=== PATIENT | female | born 1960 | race Caucasian/White ===

== ENCOUNTER → 2016-10-01 | Day surgery (SDC) | payer OTHER ==
[~2016-10-01] MED LIST: AMLO10 PO; GABA300 PO; GLUCTAB OR; INDO50CA PO; K-TA10TA5 PO; LACTATED RINGER'S 1000 ML INJ 1,000 ML ONE; LASI20TA PO; ONDA1TAB16 PO; PROPOFOL 500 MG/50 ML BTL IV ONE; PROT40TA PO; STOOL SOFTENER; TOPR50TA PO; TRAM50 PO
== END | disposition home or self-care (01) ==
LOC: ESDC 08:41
PROVIDERS: ATTEND Internal Medicine Gastroenterology
DX: K29.70 Gastritis, unspecified, without bleeding (principal); K22.70 Barrett's esophagus without dysplasia; K31.89 Other diseases of stomach and duodenum
CPT/HCPCS: 00740; 00810; 43239; 45380; 88305; 88312; J3010; J7120

== ENCOUNTER → 2016-11-22 | Outpatient (CLI) | payer OTHER ==
[~2016-11-22] MED LIST changes: -LACTATED RINGER'S 1000 ML INJ 1,000 ML ONE; -PROPOFOL 500 MG/50 ML BTL IV ONE
--- NOTE | 2016-11-22 14:50 | RADRPT ---
EXAM DATE/TIME: 11/22/2016 00:00 [place] COMPARISON: No previous studies available for comparison. INDICATIONS : Dysphagia. FLUORO TIME: 1.0 minutes IMAGE COUNT: 0 CONTRAST: Dose as prescribed by speech pathologist. MEDICAL HISTORY : Hypertension. Cardiovascular disease. Gastroesophageal reflux disease. Diabetes. SURGICAL HISTORY : Cholecystectomy. Hiatal hernia repair. ENCOUNTER: Initial ACUITY: 1 day PAIN SCORE: 0/10 LOCATION: Esophagus. FINDINGS: A modified barium swallow was performed with speech pathology. Patient was given a variety of liquids to swallow. Deglutition is grossly normal with no evidence of aspiration. For a full detailed report, see report by the speech pathologist. CONCLUSION: Unremarkable exam. Darian Fletcher MD on November 22, 2016 at 14:47 Board Certified Radiologist. This report was verified electronically.
== END ==
LOC: HRAD 13:39
DX: R13.10 Dysphagia, unspecified (principal)
CPT/HCPCS: 74230; 92611; G8996; G8997; G8998

== ENCOUNTER 2017-07-04 07:53 | Observation (INO) | payer OTHER ==
[~2017-07-04] VITALS: Ht 165.1 cm; Wt 154.9 kg
[2017-07-04] MEDS ORDERED: SODIUM CHLORID 0.9% 500 ML IV PRN (08:45)
[2017-07-04] MEDS ORDERED: ACETAMINOPHEN 1000 MG/100 ML 100 ML IV SCH (08:45)
[2017-07-04] MEDS ORDERED: INSULIN HUMAN REGULAR 1,000 UNITS/10 ML VIAL SQ PRN (08:45)
[2017-07-04] MEDS ORDERED: LACTATED RINGER'S 1000 ML IV PRN (08:45)
[2017-07-04] MEDS ORDERED: ceFAZolin 2 GM PREMIX 50 ML IV SCH (08:45)
[2017-07-04] MEDS ORDERED: METOPROLOL TARTRATE 25 MG TAB PO PRN (08:45)
[2017-07-04] MEDS ORDERED: AMLO10TA2 PO (09:18)
[2017-07-04] MEDS ORDERED: GABA300C5 PO (09:18)
[2017-07-04] MEDS ORDERED: INDO25CA PO (09:18)
[2017-07-04] MEDS ORDERED: FURO20TA PO (09:18)
[2017-07-04] MEDS ORDERED: GLUCTAB PO (09:18)
[2017-07-04] MEDS ORDERED: TOPR50TA PO (09:28)
[2017-07-04] MEDS ORDERED: POTA10CA PO (09:28)
[2017-07-04] MEDS ORDERED: ZOFR4TAB PO (09:28)
[2017-07-04] MEDS ORDERED: PROT40TA PO (09:28)
[2017-07-04] MEDS ORDERED: MINO100 PO (09:43)
[2017-07-04] MEDS ORDERED: VITA1000 PO (09:47)
[2017-07-04] MEDS ORDERED: BUPIVACAINE/EPINEPHRINE 0.25% PF 30 ML VIAL ONE (10:45)
[2017-07-04] MEDS ORDERED: BUPIVACAINE LIPOSOME PF 1.3% 20 ML VIAL ONE (11:07)
[2017-07-04] MEDS ORDERED: SUCCINYLCHOLINE CHLORIDE 100 MG/5 ML SYRINGE IV PUSH ONE (12:00)
[2017-07-04] MEDS ORDERED: GLYCOPYRROLATE 1 MG/5 ML SYRINGE IV PUSH ONE (12:00)
[2017-07-04] MEDS ORDERED: ROCURONIUM INJ 50 MG/5 ML SYRINGE IV PUSH ONE (12:00)
[2017-07-04] MEDS ORDERED: MIDAZOLAM HCL 2 MG/2 ML VIAL IV ONE (12:00)
[2017-07-04] MEDS ORDERED: ONDANSETRON HCL 4 MG/2 ML VIAL IV PUSH ONE (12:00)
[2017-07-04] MEDS ORDERED: PROPOFOL 200 MG/20 ML AMP IV ONE (12:00)
[2017-07-04] MEDS ORDERED: NEOSTIGMINE 5 MG/5 ML SYRINGE IV PUSH ONE (12:00)
[2017-07-04] MEDS ORDERED: SODIUM CHLORIDE 0.9% 20 ML VIAL IV ONE (12:00)
[2017-07-04] MEDS ORDERED: LIDOCAINE HCL 1% PF 5 ML SYRINGE OTHER ONE (12:00)
[2017-07-04] MEDS ORDERED: DEXAMETHASONE SOD PHOS 4 MG/ML VIAL IV ONE (12:00)
--- NOTE | 2017-07-04 13:13 | PD.OP ---
cc: Malcom Parrish MD Operative Report Date of Surgery: Jul 04, 2017 Preoperative Diagnosis: (1) Umbilical hernia Postoperative Diagnosis: (1) Umbilical hernia Procedure: Lap umbilical hernia repair with mesh [id number] ventralight ST Anesthesia: GETA Surgeon: Malcom Parrish Service Sprinkler Helper(s): Madeline NIEVES Operation and Findings: EBL: 5cc Operative findings: 3 cm umbilical hernia, diastasis recti Procedure in detail: The patient was taken to the operating room and placed in supine position. Gen. endotracheal anesthesia was induced and the abdomen was prepped and draped in usual sterile fashion. Surgical timeout was performed to verify correct patient procedure and site. After infiltration of local anesthetic, 5 mm incision was created in the left upper abdomen and a 5 mm Optiview port placed using direct laparoscopic visualization. The abdomen was insufflated to 15 mmHg with CO2 gas which the patient tolerated well. A second 5 mm port placed in the left lower abdomen. A 5 mm port placed in the right lower abdomen and a 12 mm port in the right upper abdomen. Using the Harmonic scalpel fatty tissue surrounding an approximately 3 cm umbilical defect was taken down superiorly and inferiorly. Ventalight ST mesh was cut to 15 x 18 cm. 0 Vicryl suture was placed at the middle of the mesh. The mesh was rolled and placed in the 12 mm port into the abdominal cavity. A small stab incision was made just superior to the hernia and the core suture passer placed into the abdominal cavity and a 0 Vicryl suture was grasped to bring the mesh to the anterior abdominal wall.Capsure tacker was used to secure the superior and inferior portions of the mesh to the abdominal wall. The suture was then cut in the mesh was secured circumferentially at the edge and then in the midportion of the mesh. Prior to securing the mesh to the insufflation was placed to 11 mmHg. The mesh had wide coverage over the umbilical defect and was placed slightly more superiorly to the diastases recti. There was good hemostasis. Some of the inferior fatty tissue was removed using an Endo Catch bag. The inferior fatty tissue remaining was tacked to the bottom portion of the mesh. The 12 mm trocar was removed and the fascia closed with the core suture passer with 0 Vicryl suture. The abdomen was allowed to desufflate and trochars removed. Skin closed with subcuticular 4-0 Monocryl and Dermabond. The patient tolerated the procedure well was x-rayed and taken to PACU in stable condition. Malcom Parrish MD Jul 04, 2017 13:13
[2017-07-04] MEDS ORDERED: *PROMETHAZINE 25 MG/ML VIAL PERIprocedural use ONLY ONE (13:35)
[2017-07-04] MEDS ORDERED: DO NOT ADM ANY ANTICOAGULANT DRUGS PRN (13:38)
[2017-07-04] MEDS ORDERED: *ONDANSETRON 4 MG VIAL PERIprocedural Use ONLY ONE (13:40)
[2017-07-04] MEDS ORDERED: diphenhydrAMINE HCL 50 MG/ML VIAL ONE (13:42)
[2017-07-04] MEDS ORDERED: PROCHLORPERAZINE INJ 10 MG/2 ML VIAL ONE (13:42)
[2017-07-04] MEDS ORDERED: *HYDROmorphone PF 1 MG VIAL PERIprocedural Use ONLY ONE ×2 (14:12→16:18)
[2017-07-04] MEDS ORDERED: MORPHINE SULFATE 4 MG/ML INJ IV PUSH PRN ×2 (15:00)
[2017-07-04] MEDS ORDERED: oxyCODONE/ACETAMINOPHEN 5 MG/325 MG TAB PO PRN (15:00)
[2017-07-04] MEDS ORDERED: ONDANSETRON HCL 4 MG/2 ML VIAL IV PUSH PRN (15:00)
[2017-07-04] MEDS ORDERED: Post-op Orders (for Pharmacy) XX ONE (15:30)
[2017-07-04] MEDS ORDERED: SODIUM CHLORIDE 0.9% FLUSH 10 ML FLUSH IV FLUSH PRN (15:30)
[2017-07-04] MEDS ORDERED: oxyCODONE/ACETAMINOPHEN 10 MG/325 MG TAB PO PRN (15:30)
[2017-07-04] MEDS ORDERED: NALOXONE HCL 0.4 MG/ML AMP IV PUSH PRN (15:30)
[2017-07-04] MEDS ORDERED: diphenhydrAMINE HCL 50 MG/ML VIAL IV PUSH PRN (15:30)
[2017-07-04] MEDS ORDERED: PROMETHAZINE HCL 25 MG SUPP RECTAL PRN (15:30)
[2017-07-04] MEDS ORDERED: HYDROmorphone HCL PF 1 MG/ML VIAL IV PUSH PRN (15:30)
[2017-07-04] MEDS: LACTATED RINGER'S 1000 ML INJ 1,000 ML IV SCH (16:00)
[2017-07-04] MEDS ORDERED: SCOPOLAMINE 1.5 MG PATCH T-DERMAL SCH (17:00)
[2017-07-04] MEDS ORDERED: REMOVE OLD SCOPOLAMINE PATCH T-DERMAL SCH (17:00)
[2017-07-04] MEDS: KETOROLAC TROMETHAMINE 30 MG/ML (IVP) VIAL IV PUSH SCH ×2 (18:30→23:45)
[2017-07-04 20:09] VITALS: O2SAT 96
[2017-07-04] MEDS ORDERED: METFORMIN 1000 MG PO SCH (21:00)
[2017-07-04] MEDS: metFORMIN HCL 500 MG TAB PO SCH (21:15)
[2017-07-04] MEDS: ONDANSETRON HCL 4 MG/2 ML VIAL IV PUSH PRN (21:16)
[2017-07-04] MEDS: METOPROLOL SUCCINATE 50 MG EXTENDED RELEASE TAB PO SCH (21:16)
[2017-07-04] MEDS: oxyCODONE/ACETAMINOPHEN 5 MG/325 MG TAB PO PRN (21:16)
[2017-07-04] MEDS: SODIUM CHLORIDE 0.9% FLUSH 10 ML FLUSH IV FLUSH SCH (21:17)
[2017-07-04 21:40] VITALS: BP 132/64; PULSE 74; RESP 18; TEMP 99.3; O2SAT 93
[2017-07-05] MEDS: LACTATED RINGER'S 1000 ML INJ 1,000 ML IV SCH ×2 (03:41→11:31)
[2017-07-05 05:00] VITALS: BP 118/59; PULSE 67; RESP 17; TEMP 98.2; O2SAT 95
[2017-07-05] MEDS: KETOROLAC TROMETHAMINE 30 MG/ML (IVP) VIAL IV PUSH SCH ×2 (05:32→11:32)
[2017-07-05] MEDS: oxyCODONE/ACETAMINOPHEN 5 MG/325 MG TAB PO PRN ×2 (07:11→12:14)
[2017-07-05 08:00] VITALS: BP 123/66; PULSE 72; RESP 19; TEMP 97.6; O2SAT 95
[2017-07-05] MEDS: ONDANSETRON HCL 4 MG/2 ML VIAL IV PUSH PRN ×2 (08:24→14:07)
[2017-07-05] MEDS: SODIUM CHLORIDE 0.9% FLUSH 10 ML FLUSH IV FLUSH SCH (08:25)
[2017-07-05] MEDS: metFORMIN HCL 500 MG TAB PO SCH (08:27)
[2017-07-05] MEDS: METOPROLOL SUCCINATE 50 MG EXTENDED RELEASE TAB PO SCH (08:33)
[2017-07-05] MEDS ORDERED: PANTOPRAZOLE SOD 40 MG DELAYED RELEASE TAB PO SCH (09:00)
--- NOTE | 2017-07-05 11:56 | HHI.DS ---
Discharge Summary Admission Date Jul 04, 2017 at 15:21 Discharge Date: Jul 05, 2017 Admitting Diagnosis (1) Umbilical hernia ICD Codes: K42.9 - Umbilical hernia without obstruction or gangrene Procedures Laparoscopic repair of umbilical hernia with mesh Brief History 57 yo F obese with sympomatic umbilical hernia presents for elective repair PE at Discharge NAD, obese Nonlabored breathing Abd: binder in place, inc c/d/i Hospital Course Ms. Younger required overnight stay due to intractable nausea as well as signifcant pain. She is doing well this am. SHe is tolerating clears well and desires dc home. Nausea is controlled. Pt Condition on Discharge: Good Discharge Disposition: Discharge Home Discharge Instructions DIET: Follow Instructions for: Heart Healthy Diet Activities you can perform: See Additionl Instruction Other Activity Instructions: Avoid heavy lifting. Ok to shower. No driving for three days or while on narcotics. Follow up Referrals: Surgical - 2 Weeks with Malcom Parrish MD Continued Medications: Amlodipine (Amlodipine) 10 Mg Tab 5 MG PO DAILY for Blood Pressure Management, #30 TAB 0 Refills Cholecalciferol (Vitamin D-1000) 1,000 Unit Tab 2 TAB PO DAILY for Nutritional Supplement, #1 BOTTLE 0 Refills Indomethacin (Indomethacin) 25 Mg Cap 75 MG PO BID, CAP 0 Refills Take with food, milk, or antacids to decrease stomach adverse effects. Metformin ER (Glucophage XR) 500 Mg Tray 1000 MG PO BID for Blood Sugar Management, #30 TAB 0 Refills With evening meal Metoprolol Succinate ER 24 HR (Toprol XL) 50 Mg Tab 50 MG PO BID, #30 TAB 0 Refills Minocycline (Minocycline) 100 Mg Cap 100 MG PO ONCE for Mgmt Bacterial Infection, #1 CAP 0 Refills Ondansetron (Zofran) 4 Mg Tab 4 MG PO Q6HR PRN for NAUSEA OR VOMITING, TAB 0 Refills Pantoprazole (Protonix) 40 Mg Tab 40 MG PO DAILY for Reflux, #30 TAB 0 Refills Potassium Chloride ER (Potassium Chloride ER) 10 Meq Cap 10 MEQ PO DAILY for Electrolyte Replacement, #30 CAP 0 Refills Additional Information She has a rx for percocet at home already as well as zofran from her pcp. Malcom Parrish MD Jul 05, 2017 11:56
[2017-07-05 12:00] VITALS: BP 147/65; PULSE 78; RESP 18; TEMP 97.7; O2SAT 97
[2017-07-05] MEDS ORDERED: ENOXAPARIN SODIUM 40 MG/0.4 ML SYRINGE SQ SCH (13:00)
[2017-07-05 13:21] VITALS: O2SAT 97
== END 2017-07-05 15:11 | disposition home or self-care (01) ==
LOC: HSDC 07:53 → HSDI 15:21 → N07B 19:15
PROVIDERS: ADMIT Surgery; ATTEND Surgery
DX: K42.9 Umbilical hernia without obstruction or gangrene (principal); R11.0 Nausea; E66.9 Obesity, unspecified; Z68.43 Body mass index [BMI] 50.0-59.9, adult; M62.08 Separation of muscle (nontraumatic), other site; E11.9 Type 2 diabetes mellitus without complications; R07.89 Other chest pain; K21.9 Gastro-esophageal reflux disease without esophagitis; E04.9 Nontoxic goiter, unspecified; K22.70 Barrett's esophagus without dysplasia; J22 Unspecified acute lower respiratory infection; K62.5 Hemorrhage of anus and rectum; E78.5 Hyperlipidemia, unspecified; E03.9 Hypothyroidism, unspecified; M06.4 Inflammatory polyarthropathy; M79.89 Other specified soft tissue disorders; I51.7 Cardiomegaly; I27.21 Secondary pulmonary arterial hypertension; G40.909 Epilepsy, unspecified, not intractable, without status epilepticus; G47.9 Sleep disorder, unspecified; E55.9 Vitamin D deficiency, unspecified; E53.9 Vitamin B deficiency, unspecified; M40.40 Postural lordosis, site unspecified
CPT/HCPCS: 00750; 49652; 82948; 94150; 96361; 96374; 96375; 96376; C1781; C9290; G0378; J0131; J0330; J0690; J0780; J1100; J1170; J1200; J1885; J2250; J2405; J2550; J2710; J3010; J7120